=== PATIENT | female | born 2000 | race Hispanic/Latino ===

== ENCOUNTER 2021-12-13 21:18 | Emergency (ER) | payer OTHER ==
[2021-12-13] MEDS ORDERED: Ondansetron PF 4 MG/2 ML Vial ONE (22:01)
[2021-12-13 22:21] LABS: #Eosinphils 0.2 10x3/uL (0.0-0.5); #Monocytes 0.5 10x3/uL (0.0-1.1); #Neutrophils 7.5 10x3/uL (1.5-8.4); %Basophils 0.4 % (0.0-2.0); %Eosinophils 2.3 % (0.0-6.0); %Lymphocytes 13.5 % (18.0-47.0); %Monocytes 4.8 % (0.0-10.0); %Neutrophils 78.8 % (40.0-75.0); Hemoglobin 10.9 g/dL (12.0-15.5); Mean Corpuscular Hemoglobin 30.4 pg (27.0-33.0); Mean Corpuscular Volume 89.7 fl (81.6-98.3); Mean Platelet Volume 10.2 fl (7.4-10.4); Platelet Count 284 10x3/uL (150-450); RBC Distribution Width 12.5 % (11.5-14.5); Red Blood Cell (RBC) Count 3.58 10x6/uL (3.90-5.03); White Blood Cell (WBC) Count 9.5 10x3/uL (3.5-10.5)
[2021-12-13 22:31] LABS: ALT (SGPT) 10 U/L (8-55); AST (SGOT) 11 U/L (5-34); Alkaline Phosphatase 61 U/L (40-110); Anion Gap 13 mmol/L (10-20); BUN (Urea Nitrogen) 5 mg/dL (7.0-18.7); Bilirubin, Total 0.3 mg/dL (0.2-1.2); Calc. Creatinine Clearance 0 mL/min (70-130); Calcium 8.9 mg/dL (7.8-10.44); Carbon Dioxide 21 mmol/L (22-29); Chloride 104 mmol/L (98-107); Globulin 3.7 g/dL (2.4-3.5); Glucose 83 mg/dL (70-105); Potassium 3.7 mmol/L (3.5-5.1); Protein, Total 7.7 g/dL (6.0-8.3); Sodium 134 mmol/L (136-145)
[2021-12-13] MEDS ORDERED: diphenhydrAMINE 50 MG/ML VIAL ONE (22:33)
[2021-12-13] MEDS ORDERED: Metoclopramide HCl 10 MG/2 ML VIAL ONE (22:33)
[2021-12-13 23:50] LABS: Bilirubin Neg (Negative); Blood, Urine Negative (Negative); Clarity Clear (Clear); Glucose, Urine (Dipstick) Normal (Negative); Ketone, Urine 50 mg/dL (Negative); Leukocyte Negative (Negative); Nitrite Negative (Negative); Protein, Urine (Dipstick) Negative (Neg-Trace); Specific Gravity, Urine 1.015 (1.002-1.036); Urobilinogen Normal mg/dL (Less than 2)
== END 2021-12-14 01:30 | disposition home or self-care (01) ==
LOC: CSHERS 21:18
DX: O21.9 Vomiting of pregnancy, unspecified (principal); O99.891 Other specified diseases and conditions complicating pregnancy; R10.12 Left upper quadrant pain; O99.512 Diseases of the respiratory system complicating pregnancy, second trimester; J45.909 Unspecified asthma, uncomplicated; Z3A.16 16 weeks gestation of pregnancy; Z79.899 Other long term (current) drug therapy
CPT/HCPCS: 80053; 81003; 85025; 87804; 96365; 96375; J1200; J2405; J2765

== ENCOUNTER 2022-02-05 10:11 | Observation (INO) | payer OTHER ==
[2022-02-05] MEDS ORDERED: hydrALAZINE 20 MG/ML VIAL SLOW IVP PRN ×2 (11:15→17:33)
[2022-02-05 11:20] VITALS: BMI 31.2
[2022-02-05] MEDS ORDERED: Lactated Ringer's 1,000 ML IV SCH (11:30)
[2022-02-05] MEDS: Lactated Ringer's 1,000 ML IV SCH ×3 (11:31→19:25)
[2022-02-05] MEDS ORDERED: Promethazine HCl 25 MG/ML VIAL IM SCH (12:00)
[2022-02-05 12:32] LABS: #Monocytes 0.4 10x3/uL (0.0-1.1); #Neutrophils 2.4 10x3/uL (1.5-8.4); %Basophils 0.3 % (0.0-2.0); %Eosinophils 0.5 % (0.0-6.0); %Lymphocytes 26.4 % (18.0-47.0); %Monocytes 9.5 % (0.0-10.0); Mean Corpuscular Hemoglobin 30.4 pg (27.0-33.0); Mean Corpuscular Volume 89.5 fl (81.6-98.3); Mean Platelet Volume 10.5 fl (7.4-10.4); Platelet Count 261 10x3/uL (150-450); RBC Distribution Width 13.6 % (11.5-14.5); Red Blood Cell (RBC) Count 3.62 10x6/uL (3.90-5.03); White Blood Cell (WBC) Count 3.8 10x3/uL (3.5-10.5)
[2022-02-05 12:53] LABS: Anion Gap 19 mmol/L (10-20); BUN (Urea Nitrogen) 10 mg/dL (7.0-18.7); Calc. Creatinine Clearance 186 mL/min (70-130); Calcium 8.6 mg/dL (7.8-10.44); Carbon Dioxide 19 mmol/L (22-29); Chloride 104 mmol/L (98-107); Glucose 85 mg/dL (70-105); Potassium 3.9 mmol/L (3.5-5.1); Sodium 138 mmol/L (136-145)
[2022-02-05] MEDS ORDERED: Ondansetron PF 4 MG/2 ML Vial IVP SCH ×2 (13:45→17:45)
[2022-02-05] MEDS ORDERED: Prochlorperazine Edisylate 10 MG in Sodium Chloride 0.9% 50 ML IVPB SCH (17:45)
[2022-02-05 19:01] LABS: Hemoglobin 9.6 g/dL (12.0-15.5); Mean Corpuscular HGB CONC 33.9 g/dL (32.0-36.0); Mean Corpuscular Hemoglobin 30.6 pg (27.0-33.0); Mean Corpuscular Volume 90.1 fl (81.6-98.3); Mean Platelet Volume 9.8 fl (7.4-10.4); Platelet Count 225 10x3/uL (150-450); RBC Distribution Width 13.5 % (11.5-14.5); Red Blood Cell (RBC) Count 3.14 10x6/uL (3.90-5.03); White Blood Cell (WBC) Count 3.6 10x3/uL (3.5-10.5)
[2022-02-05 19:38] LABS: Hep B Surf Ag Non-Reactive S/CO (NonReactive); Syphilis Antibody Nonreactive (Nonreactive); Syphilis Antibody Index 0.07 S/CO (<1.00 Non-Reactive)
[2022-02-05 19:40] LABS: HBSAg Index 0.17 S/CO (0-0.99)
[2022-02-05] MEDS: Ondansetron PF 4 MG/2 ML Vial IVP SCH (19:49)
[2022-02-05] MEDS: Prochlorperazine Edisylate 10 MG, Admixture Fee 1 EACH in Sodium Chloride 0.9% 50 ML IVPB SCH (20:28)
[2022-02-06] MEDS: Prochlorperazine Edisylate 10 MG, Admixture Fee 1 EACH in Sodium Chloride 0.9% 50 ML IVPB SCH ×3 (00:19→07:00)
[2022-02-06] MEDS: Ondansetron PF 4 MG/2 ML Vial IVP SCH ×2 (01:24→07:00)
[2022-02-06] MEDS: Lactated Ringer's 1,000 ML IV SCH ×3 (03:34→06:03)
[2022-02-06] MEDS ORDERED: Ondansetron ODT 4 MG TAB PO PRN (08:09)
[2022-02-06 11:18] VITALS: BP 106/57; TEMP 98
[2022-02-06] MEDS ORDERED: Prochlorperazine Maleate 10 MG TAB PO PRN (13:00)
== END 2022-02-06 12:45 | disposition home or self-care (01) ==
LOC: CSHLD/OP 10:11 → CSHANTE 18:22 → INTOOBSV 18:22
PROVIDERS: ADMIT Obstetrics & Gynecology; ATTEND Obstetrics & Gynecology
DX: O99.612 Diseases of the digestive system complicating pregnancy, second trimester (principal); K52.9 Noninfective gastroenteritis and colitis, unspecified; O99.512 Diseases of the respiratory system complicating pregnancy, second trimester; J45.909 Unspecified asthma, uncomplicated; O99.282 Endocrine, nutritional and metabolic diseases complicating pregnancy, second trimester; E03.9 Hypothyroidism, unspecified; O34.219 Maternal care for unspecified type scar from previous cesarean delivery; Z3A.24 24 weeks gestation of pregnancy; Z79.890 Hormone replacement therapy
CPT/HCPCS: 36415; 80048; 85025; 86780; 86850; 86900; 86901; 87340; 96374; 96375; 96376; 99285; G0378; J0780; J2405; J2550; J7120

== ENCOUNTER 2022-05-14 19:35 | Inpatient (IN) | payer OTHER ==
[2022-05-14 20:06] VITALS: BMI 33.4
[2022-05-14] MEDS ORDERED: Acetaminophen 500 MG TAB PO PRN (20:34)
[2022-05-14] MEDS ORDERED: Promethazine HCl 25 MG/ML VIAL IM PRN ×2 (20:34→21:03)
[2022-05-14] MEDS ORDERED: Famotidine/PF 20 mg/2ml Vial SLOW IVP PRN (20:34)
[2022-05-14] MEDS ORDERED: Ondansetron PF 4 MG/2 ML Vial IVP PRN ×2 (20:34→21:03)
[2022-05-14] MEDS ORDERED: Bicitra 30 ML UDCUP PO PRN (20:34)
[2022-05-14] MEDS ORDERED: hydrALAZINE 20 MG/ML VIAL SLOW IVP PRN (20:34)
[2022-05-14] MEDS ORDERED: Lactated Ringer's 1,000 ML IV SCH (20:45)
[2022-05-14] MEDS ORDERED: Azithromycin 500 MG in Sodium Chloride 0.9% 250 ML 250 ML IVPB SCH (20:45)
[2022-05-14] MEDS ORDERED: CEFAZOLIN 2 GM in Sodium Chloride 0.9% 100 ML IVPB SCH (21:00)
[2022-05-14] MEDS ORDERED: Moisturizing Cream (Eucerin) 113 GM JAR TOP PRN (21:03)
[2022-05-14] MEDS ORDERED: diphenhydrAMINE 50 MG/ML VIAL IVP PRN (21:03)
[2022-05-14] MEDS ORDERED: HYDROmorphone 2 MG/ML VIAL SLOW IVP PRN (21:03)
[2022-05-14] MEDS ORDERED: Promethazine HCl 25 MG SUPP PR PRN (21:03)
[2022-05-14] MEDS ORDERED: Meperidine HCl/PF 25 MG/ML VIAL SLOW IVP PRN (21:03)
[2022-05-14] MEDS ORDERED: Ondansetron HCl/PF 4 MG/2 ML Vial IVP PRN (21:03)
[2022-05-14] MEDS ORDERED: Naloxone HCl 0.4 mg/ml Vial IVP PRN ×2 (21:03)
[2022-05-14] MEDS ORDERED: Naloxone HCl 0.4 mg/ml Vial IV PRN (21:03)
[2022-05-14] MEDS ORDERED: Fentanyl 100 MCG/2 ML VIAL SLOW IVP PRN (21:03)
[2022-05-14] MEDS ORDERED: Ondansetron PF 4 MG/2 ML Vial ONE (21:11)
[2022-05-14] MEDS ORDERED: Oxytocin 10 UNITS/ML VIAL ONE ×2 (21:11→22:23)
[2022-05-14] MEDS ORDERED: Dexamethasone 4 mg/ml Vial ONE (21:11)
[2022-05-14] MEDS ORDERED: Morphine PF 10 MG/10 ML VIAL ONE (21:11)
[2022-05-14] MEDS ORDERED: Phenylephrine 40 MG/NS 250 ML 250 ML ONE (21:12)
[2022-05-14] MEDS ORDERED: Communication Order-Pharmacy FS SCH (21:15)
[2022-05-14] MEDS ORDERED: Ketorolac Tromethamine 30 MG/ML VIAL IVP SCH (21:15)
[2022-05-14 21:19] LABS: Hemoglobin 10.6 g/dL (12.0-15.5); Mean Corpuscular HGB CONC 33.5 g/dL (32.0-36.0); Mean Corpuscular Hemoglobin 28.6 pg (27.0-33.0); Mean Corpuscular Volume 85.2 fl (81.6-98.3); Mean Platelet Volume 10.5 fl (7.4-10.4); Platelet Count 327 10x3/uL (150-450); RBC Distribution Width 14.2 % (11.5-14.5); Red Blood Cell (RBC) Count 3.71 10x6/uL (3.90-5.03); White Blood Cell (WBC) Count 9.7 10x3/uL (3.5-10.5)
[2022-05-14] MEDS ORDERED: Ketorolac Tromethamine 30 MG/ML VIAL ONE (21:23)
[2022-05-14 21:51] LABS: SARS-CoV-2 NAA Rapid Test Not Detected (NotDetected)
[2022-05-14 22:05] LABS: Hep B Surf Ag Non-Reactive S/CO (NonReactive); Syphilis Antibody Nonreactive (Nonreactive); Syphilis Antibody Index 0.07 S/CO (<1.00 Non-Reactive)
[2022-05-14] MEDS ORDERED: Midazolam HCl 2 mg/2 ml Vial ONE (22:17)
[2022-05-14 22:25] LABS: HBSAg Index 0.15 S/CO (0-0.99)
[2022-05-14] MEDS ORDERED: Promethazine HCl 25 MG/ML VIAL ONE ×2 (22:34→22:36)
[2022-05-15] MEDS ORDERED: NS w/ Oxytocin 30 units 500 ML ONE (01:24)
[2022-05-15] MEDS ORDERED: Ondansetron PF 4 MG/2 ML Vial IVP PRN (01:26)
[2022-05-15] MEDS ORDERED: hydrALAZINE 20 MG/ML VIAL SLOW IVP PRN (01:26)
[2022-05-15] MEDS ORDERED: Lanolin Ointment 7 GM TUBE TOP PRN (01:26)
[2022-05-15] MEDS ORDERED: NS w/ Oxytocin 30 units 500 ML IV SCH (01:26)
[2022-05-15] MEDS ORDERED: Simethicone Chewable 80 MG TAB PO PRN (01:26)
[2022-05-15] MEDS ORDERED: Methylergonovine 0.2 MG/ML VIAL IM PRN (01:26)
[2022-05-15] MEDS ORDERED: diphenhydrAMINE 25 MG CAP PO PRN (01:26)
[2022-05-15] MEDS ORDERED: Boostrix 0.5 ML (Tdap) VIAL IM ONE (01:26)
[2022-05-15] MEDS: Ketorolac Tromethamine 30 MG/ML VIAL IVP PRN ×3 (01:41→17:53)
[2022-05-15 07:29] LABS: Hemoglobin 10.4 g/dL (12.0-15.5); Mean Corpuscular HGB CONC 32.9 g/dL (32.0-36.0); Mean Corpuscular Hemoglobin 28.5 pg (27.0-33.0); Mean Corpuscular Volume 86.6 fl (81.6-98.3); Mean Platelet Volume 10.7 fl (7.4-10.4); Platelet Count 299 10x3/uL (150-450); RBC Distribution Width 14.4 % (11.5-14.5); Red Blood Cell (RBC) Count 3.65 10x6/uL (3.90-5.03); White Blood Cell (WBC) Count 17.7 10x3/uL (3.5-10.5)
[2022-05-15] MEDS ORDERED: HYDROcodone/Acetaminophen 5/325 mg Tablet PO PRN (09:15)
[2022-05-15] MEDS: Docusate 100 MG CAP PO SCH ×2 (09:51→20:04)
[2022-05-15] MEDS: Prenatal Vitamin 1 TAB PO SCH (09:51)
[2022-05-15] MEDS: Ferrous Sulfate 325 MG TAB PO SCH ×2 (11:29→22:51)
[2022-05-15] MEDS: HYDROcodone/Acetaminophen 5/325 mg Tablet PO PRN ×2 (12:00→16:52)
[2022-05-15] MEDS: Morphine 4 MG/ML VIAL SLOW IVP PRN ×2 (14:15→19:57)
[2022-05-16] MEDS: HYDROcodone/Acetaminophen 5/325 mg Tablet PO PRN ×5 (00:21→23:32)
[2022-05-16] MEDS: Ibuprofen 800 MG TAB PO SCH ×3 (05:58→21:28)
[2022-05-16] MEDS: Levothyroxine Sodium 50 MCG TAB PO SCH (05:58)
[2022-05-16] MEDS: Ferrous Sulfate 325 MG TAB PO SCH ×2 (08:54→19:33)
[2022-05-16] MEDS: Prenatal Vitamin 1 TAB PO SCH (08:58)
[2022-05-16] MEDS: Docusate 100 MG CAP PO SCH ×2 (08:58→21:28)
[2022-05-17] MEDS: HYDROcodone/Acetaminophen 5/325 mg Tablet PO PRN (04:01)
[2022-05-17 04:12] VITALS: TEMP 98
[2022-05-17] MEDS: Levothyroxine Sodium 50 MCG TAB PO SCH (06:06)
[2022-05-17] MEDS: Ibuprofen 800 MG TAB PO SCH (06:06)
[2022-05-17 07:44] VITALS: BP 116/56
[2022-05-17] MEDS: Docusate 100 MG CAP PO SCH (09:28)
[2022-05-17] MEDS: Prenatal Vitamin 1 TAB PO SCH (09:28)
[2022-05-17] MEDS: Ferrous Sulfate 325 MG TAB PO SCH (09:44)
== END 2022-05-17 11:45 | disposition home or self-care (01) | DRG 788 ==
LOC: CSHLD/OP 19:35 → CSHLD 20:53 → CSHPP 05-15 10:45
PROVIDERS: ADMIT Family Medicine; ATTEND Family Medicine
PROC: 10D00Z1 Extraction of Products of Conception, Low, Open Approach (ICD-10-PCS; principal; 2022-05-14)
DX: O34.211 Maternal care for low transverse scar from previous cesarean delivery (principal); Z20.822 Contact with and (suspected) exposure to COVID-19; Z3A.38 38 weeks gestation of pregnancy; Z37.0 Single live birth; J45.909 Unspecified asthma, uncomplicated; F41.9 Anxiety disorder, unspecified; F32.A Depression, unspecified; E03.9 Hypothyroidism, unspecified; O99.52 Diseases of the respiratory system complicating childbirth; O99.284 Endocrine, nutritional and metabolic diseases complicating childbirth; O99.344 Other mental disorders complicating childbirth; Z79.890 Hormone replacement therapy; Z79.899 Other long term (current) drug therapy; Z79.51 Long term (current) use of inhaled steroids
CPT/HCPCS: 51702; 85027; 86780; 86850; 86900; 86901; 87340; 99285; J0456; J0690; J1100; J1200; J1885; J2250; J2270; J2274; J2405; J2550; J2590; J3490; J7050; S0028; U0002

== ENCOUNTER 2022-06-26 03:07 | Emergency (ER) | payer OTHER ==
[2022-06-26 04:53] LABS: #Eosinphils 0.2 10x3/uL (0.0-0.5); #Monocytes 0.4 10x3/uL (0.0-1.1); %Basophils 0.6 % (0.0-2.0); %Eosinophils 3.2 % (0.0-6.0); %Lymphocytes 34.4 % (18.0-47.0); %Monocytes 6.1 % (0.0-10.0); %Neutrophils 55.4 % (40.0-75.0); Hemoglobin 11.9 g/dL (12.0-15.5); Mean Corpuscular Hemoglobin 28.3 pg (27.0-33.0); Mean Platelet Volume 10.2 fl (7.4-10.4); Platelet Count 335 10x3/uL (150-450); RBC Distribution Width 14.4 % (11.5-14.5); White Blood Cell (WBC) Count 7.2 10x3/uL (3.5-10.5)
[2022-06-26 05:06] LABS: ALT (SGPT) 23 U/L (8-55); AST (SGOT) 18 U/L (5-34); Albumin 4.5 g/dL (3.5-5.0); Alcohol Less than 10 mg/dL (Less than 10); Alkaline Phosphatase 78 U/L (40-110); Anion Gap 13 mmol/L (10-20); BUN (Urea Nitrogen) 9 mg/dL (7.0-18.7); Bilirubin, Total 0.7 mg/dL (0.2-1.2); Calc. Creatinine Clearance 0 mL/min (70-130); Calcium 9.1 mg/dL (7.8-10.44); Carbon Dioxide 22 mmol/L (22-29); Chloride 105 mmol/L (98-107); Estimated GFR 125; Globulin 3.3 g/dL (2.4-3.5); Glucose 92 mg/dL (70-105); Potassium 3.3 mmol/L (3.5-5.1); Protein, Total 7.8 g/dL (6.0-8.3); Sodium 137 mmol/L (136-145)
[2022-06-26 05:55] LABS: BHCG - Serum Negative (NEGATIVE); Pregs Control Background? CLEAR/WHITE (CLR/WHITE); Pregs Control Bar Appear? YES (CONTROL BAR)
== END 2022-06-26 06:46 | disposition home or self-care (01) ==
LOC: CSHERS 03:07
DX: T14.8XXA Other injury of unspecified body region, initial encounter (principal); M25.511 Pain in right shoulder; M25.551 Pain in right hip; W19.XXXA Unspecified fall, initial encounter
CPT/HCPCS: 70450; 72125; 80053; 80307; 83605; 84703; 85025

== ENCOUNTER 2022-07-18 10:36 | Observation (INO) | payer OTHER ==
[2022-07-18 11:31] LABS: #Eosinphils 0.3 10x3/uL (0.0-0.5); #Monocytes 0.3 10x3/uL (0.0-1.1); #Neutrophils 3.4 10x3/uL (1.5-8.4); %Basophils 0.5 % (0.0-2.0); %Eosinophils 4.4 % (0.0-6.0); %Lymphocytes 37.3 % (18.0-47.0); %Monocytes 5.2 % (0.0-10.0); %Neutrophils 52.3 % (40.0-75.0); BHCG - Serum Negative (NEGATIVE); Hemoglobin 11.4 g/dL (12.0-15.5); Mean Corpuscular HGB CONC 33.5 g/dL (32.0-36.0); Mean Corpuscular Hemoglobin 28.6 pg (27.0-33.0); Mean Corpuscular Volume 85.2 fl (81.6-98.3); Mean Platelet Volume 10.2 fl (7.4-10.4); Platelet Count 472 10x3/uL (150-450); Pregs Control Background? CLEAR/WHITE (CLR/WHITE); Pregs Control Bar Appear? YES (CONTROL BAR); RBC Distribution Width 13.9 % (11.5-14.5); Red Blood Cell (RBC) Count 3.99 10x6/uL (3.90-5.03); White Blood Cell (WBC) Count 6.6 10x3/uL (3.5-10.5)
[2022-07-18 11:37] LABS: ALT (SGPT) 17 U/L (8-55); AST (SGOT) 16 U/L (5-34); Albumin 4.6 g/dL (3.5-5.0); Alkaline Phosphatase 67 U/L (40-110); Anion Gap 14 mmol/L (10-20); BUN (Urea Nitrogen) 7 mg/dL (7.0-18.7); Bilirubin, Total 0.6 mg/dL (0.2-1.2); Calc. Creatinine Clearance 0 mL/min (70-130); Calcium 9.4 mg/dL (7.8-10.44); Carbon Dioxide 23 mmol/L (22-29); Chloride 106 mmol/L (98-107); Estimated GFR 125; Globulin 3.5 g/dL (2.4-3.5); Glucose 102 mg/dL (70-105); Lipase 41 U/L (8-78); Potassium 3.6 mmol/L (3.5-5.1); Protein, Total 8.1 g/dL (6.0-8.3); Sodium 139 mmol/L (136-145)
[2022-07-18] MEDS ORDERED: Morphine 4 MG/ML VIAL ONE (11:58)
[2022-07-18] MEDS ORDERED: Ondansetron PF 4 MG/2 ML Vial ONE ×2 (11:58→15:20)
[2022-07-18] MEDS ORDERED: Iopamidol 300 61% 100 ML VIAL FS ONE (13:41)
[2022-07-18 13:57] LABS: Bilirubin Neg (Negative); Blood, Urine Negative (Negative); Clarity Clear (Clear); Glucose, Urine (Dipstick) Normal (Negative); Ketone, Urine Negative (Negative); Leukocyte Negative (Negative); Nitrite Negative (Negative); Protein, Urine (Dipstick) Negative (Neg-Trace); Specific Gravity, Urine 1.005 (1.005-1.030); Urobilinogen Normal mg/dL (Less than 2)
[2022-07-18] MEDS ORDERED: Piperacillin/Tazobactam 3.375 GM VIAL ONE (15:07)
[2022-07-18] MEDS ORDERED: Fentanyl 100 MCG/2 ML VIAL ONE (15:07)
[2022-07-18] MEDS ORDERED: Morphine 2 MG/ML VIAL SLOW IVP PRN (15:29)
[2022-07-18] MEDS ORDERED: Dextrose 5% in Water 1,000 ML IV PRN (15:29)
[2022-07-18] MEDS ORDERED: Acetaminophen 325 MG TAB PO PRN (15:29)
[2022-07-18] MEDS ORDERED: Dextrose 50% Abboject 50 ML SYRINGE SLOW IVP PRN (15:29)
[2022-07-18] MEDS ORDERED: Ondansetron PF 4 MG/2 ML Vial IVP PRN (15:29)
[2022-07-18] MEDS: Sodium Chloride 0.9% 1,000 ML IV SCH (18:06)
[2022-07-18 18:29] VITALS: BMI 31.2
[2022-07-18] MEDS: Morphine 4 MG/ML VIAL SLOW IVP PRN ×2 (19:37→23:24)
[2022-07-18 20:39] LABS: SARS-CoV-2 NAA Rapid Test Not Detected (NotDetected)
[2022-07-18] MEDS: Famotidine/PF 20 mg/2ml Vial SLOW IVP SCH (21:17)
[2022-07-19] MEDS: Sodium Chloride 0.9% 1,000 ML IV SCH ×2 (01:05→09:00)
[2022-07-19] MEDS: Morphine 4 MG/ML VIAL SLOW IVP PRN ×3 (03:13→09:22)
[2022-07-19 05:29] LABS: ALT (SGPT) 15 U/L (8-55); AST (SGOT) 16 U/L (5-34); Albumin 3.7 g/dL (3.5-5.0); Alkaline Phosphatase 45 U/L (40-110); Anion Gap 9 mmol/L (10-20); BUN (Urea Nitrogen) Less than 4 mg/dL (7.0-18.7); Bilirubin, Total 0.7 mg/dL (0.2-1.2); Calc. Creatinine Clearance 152 mL/min (70-130); Calcium 8.2 mg/dL (7.8-10.44); Carbon Dioxide 26 mmol/L (22-29); Chloride 107 mmol/L (98-107); Estimated GFR 126; Globulin 2.9 g/dL (2.4-3.5); Glucose 84 mg/dL (70-105); Potassium 3.2 mmol/L (3.5-5.1); Protein, Total 6.6 g/dL (6.0-8.3); Sodium 139 mmol/L (136-145)
[2022-07-19 05:31] LABS: #Eosinphils 0.3 10x3/uL (0.0-0.5); #Monocytes 0.4 10x3/uL (0.0-1.1); #Neutrophils 3.7 10x3/uL (1.5-8.4); %Basophils 0.5 % (0.0-2.0); %Lymphocytes 32.9 % (18.0-47.0); %Monocytes 5.6 % (0.0-10.0); %Neutrophils 56.7 % (40.0-75.0); Hemoglobin 9.9 g/dL (12.0-15.5); Mean Corpuscular HGB CONC 32.6 g/dL (32.0-36.0); Mean Corpuscular Hemoglobin 28.2 pg (27.0-33.0); Mean Corpuscular Volume 86.6 fl (81.6-98.3); Platelet Count 397 10x3/uL (150-450); RBC Distribution Width 14.1 % (11.5-14.5); Red Blood Cell (RBC) Count 3.51 10x6/uL (3.90-5.03); White Blood Cell (WBC) Count 6.5 10x3/uL (3.5-10.5)
[2022-07-19] MEDS ORDERED: Bupivacaine PF 0.5% 30 ML VIAL ONE (06:18)
[2022-07-19] MEDS ORDERED: EPINEPHrine 1 MG/ML AMP ONE (06:18)
[2022-07-19] MEDS ORDERED: Midazolam HCl 2 mg/2 ml Vial ONE (07:15)
[2022-07-19] MEDS ORDERED: PROPOFOL 20 ML ONE (07:17)
[2022-07-19] MEDS ORDERED: Dexamethasone 4 mg/ml Vial ONE (07:17)
[2022-07-19] MEDS ORDERED: Albuterol Sulfate HFA (OR ONLY) ONE (07:17)
[2022-07-19] MEDS ORDERED: Glycopyrrolate 0.2 MG/ML 5 ML SYRINGE ONE (07:17)
[2022-07-19] MEDS ORDERED: Ondansetron PF 4 MG/2 ML Vial ONE (07:17)
[2022-07-19] MEDS ORDERED: Fentanyl 100 MCG/2 ML VIAL ONE (07:17)
[2022-07-19] MEDS ORDERED: Lidocaine 4% PF 5 ML AMP ONE (07:18)
[2022-07-19] MEDS ORDERED: ePHEDrine Sulfate 50 MG/10 ML VIAL ONE (07:43)
[2022-07-19] MEDS ORDERED: CEFAZOLIN 1 GM VIAL ONE (07:45)
[2022-07-19] MEDS ORDERED: Ketorolac Tromethamine 30 MG/ML VIAL ONE (07:53)
[2022-07-19] MEDS ORDERED: PHENYLEPHRINE-NS 100 MCG/ML 10 ML SYRINGE ONE (08:17)
[2022-07-19] MEDS: Famotidine/PF 20 mg/2ml Vial SLOW IVP SCH (09:23)
[2022-07-19] MEDS ORDERED: HYDROcodone/Acetaminophen 5/325 mg Tablet PO PRN ×2 (09:32)
[2022-07-19 12:11] VITALS: BP 120/64; TEMP 97.3
[2022-07-21] MEDS ORDERED: TETANUS, DIPHTHERIA TOX,ADULT (TDVAX) 0.5 ML VIAL IM ONE (15:29)
== END 2022-07-19 12:20 | disposition home or self-care (01) ==
LOC: CSHERS 10:36 → CSHTELE 16:52
PROVIDERS: ADMIT Surgery; ATTEND Surgery
PROC: 0FT44ZZ Resection of Gallbladder, Percutaneous Endoscopic Approach (ICD-10-PCS; principal; 2022-07-19)
DX: K80.12 Calculus of gallbladder with acute and chronic cholecystitis without obstruction (principal); J45.909 Unspecified asthma, uncomplicated; E03.9 Hypothyroidism, unspecified; F32.A Depression, unspecified; Z79.899 Other long term (current) drug therapy; Z20.822 Contact with and (suspected) exposure to COVID-19; Z98.890 Other specified postprocedural states
CPT/HCPCS: 36415; 74177; 76705; 80053; 81003; 83690; 84703; 85025; 88304; 96374; 96375; 96376; C1713; G0378; J0171; J0690; J1100; J1885; J2250; J2270; J2405; J2543; J2704; J3010; J7050; Q9967; S0020; S0028; U0002